=== PATIENT | female | born 1990 | race Caucasian/White ===

== ENCOUNTER 2020-01-09 09:46 | Outpatient (CLI) | payer BC, SELFPAY ==
[2020-01-09 10:24] LABS: Basophils # 0.1 10^3/uL (0.0-0.1); Basophils % 0.5 %; Eosinophils # 0.3 10^3/uL (0.0-0.8); Eosinophils % 3.2 %; Hematocrit 47.1 % (37.0-47.0); Hemoglobin 15.2 g/dL (11.5-15.3); Lymphocytes # 2.2 10^3/uL (0.8-4.8); Mean Corpuscular HGB Conc 32.3 g/dL (30.0-36.0); Mean Corpuscular Hemoglobin 29.1 pg (28.0-34.0); Mean Corpuscular Volume 90.1 fL (81-99); Mean Platelet Volume 10.4 fL (7.4-10.4); Monocytes # 0.6 10^3/uL (0.2-0.9); Monocytes % 6.6 %; Neutrophils # 6.35 10^3/uL (1.8-7.7); Neutrophils % 66.4 %; Nucleated Red Blood Cells % 0 %; Platelet Count 346 10^3/cmm (130-400); Red Blood Count 5.23 10^6/uL (4.1-5.3); Red Cell Distribution Width 12.3 % (12.1-15.1); White Blood Count 9.6 10^3/uL (4.0-10.0)
[2020-01-09 11:01] LABS: Alanine Aminotransferase 53 U/L (0-33); Albumin Level 4.6 g/dL (3.5-5.2); Alkaline Phosphatase 75 IU/L (35-105); Anion Gap 14.6 (5-19); Aspartate Amino Transferase 43 U/L (0-32); Blood Urea Nitrogen 9 mg/dL (6-20); Calcium 9.7 mg/dL (8.5-10.5); Carbon Dioxide 26 mmol/L (22-29); Chloride 103 mmol/L (98-107); Globulin 3.2 g/dL (1.3-4.6); Glucose 109 mg/dL (65-115); Lipase 16 U/L (13-60); Osmolality Calculated 287 mOsm/kg (285-295); Potassium 4.6 mmol/L (3.5-5.1); Sodium 139 mmol/L (136-145); Total Bilirubin 0.4 mg/dL (0.15-1.2); Total Protein 7.8 g/dL (6.6-8.7)
== END 2020-01-09 09:47 | disposition home or self-care (01) ==
LOC: LAB 09:48
PROVIDERS: PCP Nurse Practitioner Family; Visit Provider Nurse Practitioner Family
DX: R10.11 Right upper quadrant pain (principal); R74.8 Abnormal levels of other serum enzymes
CPT/HCPCS: 36415; 80053; 83690; 85025

== ENCOUNTER → 2020-08-13 09:13 | Outpatient (BNVA) | payer BC, SELFPAY | PROVIDERS: PCP Nurse Practitioner Family; Visit Provider Obstetrics & Gynecology | DX: N76.2 Acute vulvitis (principal) | CPT/HCPCS: 87210 ==

== ENCOUNTER → 2020-09-23 16:22 | Outpatient (BNVA) | payer BC, SELFPAY | PROVIDERS: PCP Nurse Practitioner Family; Visit Provider Nurse Practitioner Women's Health | DX: N76.2 Acute vulvitis (principal) | CPT/HCPCS: 88305 ==

== ENCOUNTER 2020-10-02 13:23 | Outpatient (CLI) | payer BC, SELFPAY ==
--- NOTE | 2020-10-02 13:30 | XR_ITS ---
WS: [id number] CERVICAL SPINE TECHNIQUE: 3 views of the cervical spine CLINICAL INFORMATION: N62 - Hypertrophy of breast COMPARISON: None. FINDINGS: Straightening of the normal cervical lordosis. Slight anterolisthesis C4 on C5. Normal C1-C2 articula tion. Normal prevertebral soft tissues. Lung apices are well aerated. Normal dens. XR/XR cervical spine 3V* [id number] IMPRESSION: 1. Straightening of the normal cervical lordosis. 2. Minimal anterolisthesis C4 on C5. 3. No other significant findings.
--- NOTE | 2020-10-02 13:30 | XR_ITS ---
WS: [id number] THORACIC SPINE TECHNIQUE: 3 views of the thoracic spine CLINICAL INFORMATION: N62 - Hypertrophy of breast COMPARISON: None. FINDINGS: Normal thoracic alignment. No acute appearing compression fractures. Vertebral body heights and disc space heights well-preserved. Cholecystectomy clips. XR/XR thoracic spine 3V* [id number] IMPRESSION: No acute thoracic spine findings.
== END 2020-10-02 13:24 | disposition home or self-care (01) ==
LOC: RADWPI 13:26
PROVIDERS: PCP Nurse Practitioner Family; Visit Provider Nurse Practitioner Women's Health
DX: N62 Hypertrophy of breast (principal)
CPT/HCPCS: 72040; 72072

== ENCOUNTER → 2021-07-02 15:15 | Outpatient (BNVA) | payer BC, SELFPAY | PROVIDERS: PCP Nurse Practitioner Family; Visit Provider Nurse Practitioner Women's Health | DX: N76.2 Acute vulvitis (principal) | CPT/HCPCS: 88305 ==

== ENCOUNTER 2021-12-01 11:00 | Outpatient (CLI) | payer BC, SELFPAY ==
[2021-12-01 11:30] VITALS: BMI 38.7
[2021-12-01 11:33] VITALS: BP 111/61; PULSE 95; RESP 17; TEMP 36.4
[2021-12-01 11:49] VITALS: BP 126/78; PULSE 97
[2021-12-01 11:55] VITALS: BP 126/78; PULSE 97
== END 2021-12-01 11:55 | disposition home or self-care (01) ==
LOC: OPOB 11:06 → OBGYN 11:29
PROVIDERS: PCP Nurse Practitioner Family; Visit Provider Family Medicine
DX: O26.892 Other specified pregnancy related conditions, second trimester (principal); O21.2 Late vomiting of pregnancy; Z3A.25 25 weeks gestation of pregnancy; R10.9 Unspecified abdominal pain
CPT/HCPCS: 59025; 99211

== ENCOUNTER 2021-12-01 12:01 | Emergency (ER) | payer BC, SELFPAY ==
[2021-12-01 12:20] VITALS: BP 124/82; PULSE 95; RESP 18; TEMP 36.8; O2SAT 97
[2021-12-01 14:55] LABS: Basophils % 0.2 %; Eosinophils % 0.2 %; Hematocrit 42.4 % (37.0-47.0); Hemoglobin 13.7 g/dL (11.5-15.3); Lymphocytes # 1.8 10^3/uL (0.8-4.8); Lymphocytes % 9.5 %; Mean Corpuscular HGB Conc 32.3 g/dL (30.0-36.0); Mean Corpuscular Hemoglobin 29.5 pg (28.0-34.0); Mean Corpuscular Volume 91.2 fl (81-99); Mean Platelet Volume 10.5 fL (7.4-10.4); Monocytes % 5.1 %; Neutrophils # 16.34 10^3/uL (1.8-7.7); Neutrophils % 84.3 %; Nucleated Red Blood Cells % 0 %; Platelet Count 279 10^3/cmm (130-400); Red Blood Count 4.65 10^6/uL (4.1-5.3); Red Cell Distribution Width 13.1 % (12.1-15.1); White Blood Count 19.4 10^3/uL (4.0-10.0)
[2021-12-01 15:23] LABS: Alanine Aminotransferase 16 U/L (0-33); Albumin Level 3.7 g/dL (3.5-5.2); Alkaline Phosphatase 74 U/L (35-105); Anion Gap 18.3 (5-19); Aspartate Amino Transferase 19 U/L (0-32); Blood Urea Nitrogen 12 mg/dL (6-20); Calcium 9.3 mg/dL (8.5-10.5); Carbon Dioxide 19 mmol/L (22-29); Chloride 101 mmol/L (98-107); Globulin 3.3 g/dL (1.3-4.6); Glomerular Filtration Rate 84.2 mL/min (90-130); Glucose 75 mg/dL (65-115); Lipase 16 U/L (13-60); Osmolality Calculated 276 mOsm/kg (285-295); Potassium 4.3 mmol/L (3.5-5.1); Sodium 134 mmol/L (136-145); Total Bilirubin 0.4 mg/dL (0.15-1.2)
== END 2021-12-01 16:28 | disposition left against medical advice (07) ==
PROVIDERS: Physician Assistant; Emergency Provider Family Medicine; PCP Nurse Practitioner Family
DX: Z53.21 Procedure and treatment not carried out due to patient leaving prior to being seen by health care provider (principal); R10.9 Unspecified abdominal pain
CPT/HCPCS: 80053; 83690; 85025

== ENCOUNTER 2021-12-03 15:13 | Emergency (ER) | payer BC, SELFPAY ==
[2021-12-03 15:40] VITALS: BP 142/82; PULSE 75; RESP 16; TEMP 36.7; O2SAT 98; BMI 38.4
--- NOTE | 2021-12-03 17:45 | ED_ITS ---
Documented by User: Chicho Morales DO 12/18/21 06:13 HPI - Abdominal Pain General: Chief Complaint: Abdominal Pain Stated Complaint: Needs CT Time Seen by Provider: 12/03/21 17:43 Source: patient Mode of arrival: ambulatory History of Present Illness: 31-year-old female at 25 weeks gestation presents emergency room complaining of left-sided flank pain she has had for the last 4 days. She also has a history of nephrolithiasis states this feels like a kidney stone she has not noticed any hematuria. She denies any dysuria urgency or frequency she has had quite a bit of nausea and vomiting states she cannot keep anything down. She has recently switch her care to Dr. Reynolds locally. She denies any fever sweats chills she has not has had some loose stools. No vaginal spotting or bleeding no dysuria urgency or frequency no noted hematuria. She reports was seen in OB and monitoring was normal. She has not had any sensation of contractions. No vaginal fluid leak no increased leukorrhea. No vaginal discharge. MD elicited complaint: abdominal pain Pertinent past history: kidney stones Onset (ago): day(s) (4) Location: L flank Severity: severe Quality: stabbing and sharp Radiation: suprapubic Exacerbating factors: nothing Relieving factors: nothing Associated Symptoms: Denies anorexia, belching, bloating, change in bowel habits, change in stool character, chills, coffee ground emesis, constipation, GI cramping, diarrhea, dyspepsia, dysuria, excessive flatus, fever(s), heartburn, hematochezia, hematuria, hematemesis, fecal incontinence, loose stools, melena, nausea, poor appetite, syncope and vomiting Related Data: Date of Last Menstrual Period: 05/31/21 Review of Systems Const: Denies: fever(s), chills, fatigue or malaise ENMT: Denies: throat pain, ear or mastoid pain, nasal discharge or nasal congestion Card: Denies: syncope Resp: Denies: dyspnea, productive cough or non-productive cough GI: Denies: nausea, vomiting, hematemesis, coffee ground emesis, heartburn, diarrhea, constipation, bloating, GI cramping, belching, excessive flatus, fecal incontinence, change in bowel habits, change in stool character, hematochezia or melena : Denies: dysuria or hematuria Skin/Breast: Denies: rash or pruritus PFSH ED PFSH: Medical History History of urinary urgency Kidney stone Psychiatric care Surgical History Hx laparoscopic cholecystectomy (05/02/18) Hx of tonsillectomy (~2000) S/P left knee arthroscopy (~2007) Family History Family/Other Colon cancer MATERNAL UNCLE--dx age 50's Father Glaucoma Grandmother Glaucoma PATERNAL Breast cancer MATERNAL-- dx age 50's Hypercholesteremia MATERNAL Denies family history of Ovarian cancer Diabetes Hypertension Uterine cancer Thyroid disease Stroke Female Reproductive History: Date of last menstrual period: 05/31/21 Physical Exam Const: GENERAL APPEARANCE: cooperative and comfortable ORIENTATION/CONSCIOUSNESS: Yes awake, Yes oriented to person, Yes oriented to place and Yes oriented to time HENMT: COMMON NORMALS: normocephalic, atraumatic and hearing grossly normal bilaterally HEAD & SCALP: normocephalic and atraumatic Resp: COMMON NORMALS: normal respiratory effort, No retractions, No use of accessory muscles and clear to auscultation bilaterally AUSCULTATION: clear to auscultation bilaterally Cardio: COMMON NORMALS: regular rate, regular rhythm and No murmurs present (Cardio) RATE: regular rate RHYTHM: regular rhythm GI: COMMON NORMALS: Soft to palpation and No hepatosplenomegaly present AUSCULTATION: Yes normoactive bowel sounds PALPATION: Yes Soft to palpation, No Tenderness to palpation present (GI), No Guarding due to palpation present (GI) and Yes No hepatosplenomegaly present Extremity: COMMON NORMALS: normal to inspection, capillary refill normal, no clubbing, cyanosis or edema, no calf tenderness and no pedal edema Neuro: SENSORIUM/ORIENTATION: Yes oriented to person, Yes oriented to place and Yes oriented to time Skin: COMMON NORMALS: no rashes or lesions noted GENERAL SKIN EXAM: no rashes or lesions noted Course Vital Signs: Vital signs: Vital Signs Temperature 98.1 F 12/03/21 20:57 Pulse Rate 84 12/03/21 20:57 Respiratory Rate 18 12/03/21 20:57 Blood Pressure 124/86 12/03/21 20:57 Pulse Oximetry 97 12/03/21 20:57 Oxygen Delivery Me thod 12/03/21 18:08 MDM - Abdominal Pain Medical Decision Making Care signed out to Dr. Way at change of shift. See final notes for diagnosis and disposition. 31-year-old female checked out to me by the previous physician at shift change. She is 25 weeks . She had left-sided flank pain that is improved significantly after fluid and pain medication. White blood cell count is 13.6 with 77% neutrophils. Her bicarbonate is 20. She has 3+ ketones in her urine. She also has blood in her urine with 1+ leukocyte esterase and 5-10 whites. She is treated with 2 L bolus of fluid, 1 g of Rocephin, and will be placed on antibiotics. Her ultrasound shows no hydronephrosis of the left kidney but she does have stones in the kidney itself, indicating likely a nonobstructing or passed kidney stone given her hematuria and significant improvement in symptoms. She will be allowed discharge with antibiotics, pain and nausea medication for symptoms. She knows to return should her pain return, or should she get a fever, as she is and high risk for problems Medical Records I reviewed the patient's medical records. Lab Data I reviewed the patient's lab results. : 12/03/21 18:09 12/03/21 18:09 Labs/Radiology: Radiology Impressions Renal Ultrasound 12/03/21 17:57 IMPRESSION: 1. Multiple hyperechoic foci in the left kidney suggesting nonobstructing stones. 2. There is a single intrauterine gestation, evaluation of the fetus was not performed during the study. 3. Stable moderate fatty infiltration of the visualized liver. Laboratory Results WBC 13.6 10^3/uL (4.0-10.0) H 12/03/21 18:09 RBC 4.73 10^6/uL (4.1-5.3) 12/03/21 18:09 Hgb 13.9 g/dL (11.5-15.3) 12/03/21 18:09 Hct 41.7 % (37.0-47.0) 12/03/21 18:09 MCV 88.2 fl (81-99) 12/03/21 18:09 MCH 29.4 pg (28.0-34.0) 12/03/21 18:09 MCHC 33.3 g/dL (30.0-36.0) 12/03/21 18:09 RDW 12.9 % (12.1-15.1) 12/03/21 18:09 Plt Count 318 10^3/cmm (130-400) 12/03/21 18:09 MPV 10.8 fL (7.4-10.4) H 12/03/21 18:09 Neut % (Auto) 77.4 % 12/03/21 18:09 Lymph % (Auto) 15.9 % 12/03/21 18:09 Posey % (Auto) 5.4 % 12/03/21 18:09 Eos % (Auto) 0.6 % 12/03/21 18:09 Baso % (Auto) 0.2 % 12/03/21 18:09 Neut # (Auto) 10.50 10^3/uL (1.8-7.7) H 12/03/21 18:09 Lymph # (Auto) 2.2 10^3/uL (0.8-4.8) 12/03/21 18:09 Posey # (Auto) 0.7 10^3/uL (0.2-0.9) 12/03/21 18:09 Eos # (Auto) 0.1 10^3/uL (0.0-0.8) 12/03/21 18:09 Baso # (Auto) 0.0 10^3/uL (0.0-0.1) 12/03/21 18:09 Nucleated RBC % (auto) 0 % 12/03/21 18:09 Nucleated RBCs # 0.0 /100WBC 12/03/21 18:09 Sodium 134 mmol/L (136-145) L 12/03/21 18:09 Potassium 3.6 mmol/L (3.5-5.1) 12/03/21 18:09 Chloride 101 mmol/L (98-107) 12/03/21 18:09 Carbon Dioxide 20 mmol/L (22-29) L 12/03/21 18:09 Anion Gap 16.6 (5-19) 12/03/21 18:09 BUN 12 mg/dL (6-20) 12/03/21 18:09 Creatinine 0.4 mg/dL (0.5-0.9) L 12/03/21 18:09 GFR Calculation 187.4 mL/min (90-130) H 12/03/21 18:09 Glucose 82 mg/dL (65-115) 12/03/21 18:09 Calculated Osmolality 277 mOsm/kg (285-295) L 12/03/21 18:09 Calcium 9.0 mg/dL (8.5-10.5) 12/03/21 18:09 Total Bilirubin 0.4 mg/dL (0.15-1.2) 12/03/21 18:09 AST 21 U/L (0-32) 12/03/21 18:09 ALT 16 U/L (0-33) 12/03/21 18:09 Alkaline Phosphatase 80 U/L (35-105) 12/03/21 18:09 Total Protein 7.5 g/dL (6.6-8.7) 12/03/21 18:09 Albumin 3.7 g/dL (3.5-5.2) 12/03/21 18:09 Globulin 3.8 g/dL (1.3-4.6) 12/03/21 18:09 Urine Color Cancelled 12/03/21 Unknown Urine Appearance Cancelled 12/03/21 Unknown Urine pH Cancelled 12/03/21 Unknown Ur Specific [place] Cancelled 12/03/21 Unknown Urine Protein Cancelled 12/03/21 Unknown Urine Glucose (UA) Cancelled 12/03/21 Unknown Urine Ketones Cancelled 12/03/21 Unknown Urine Blood Cancelled 12/03/21 Unknown Urine Nitrate Cancelled 12/03/21 Unknown Urine Bilirubin Cancelled 12/03/21 Unknown Prot Sulfosalicylic Acd Cancelled 12/03/21 Unknown Urine Urobilinogen Cancelled 12/03/21 Unknown Ur Leukocyte Esterase Cancelled 12/03/21 Unknown Urine RBC 10-15 /hpf (0-2) H 12/03/21 19:09 Urine WBC 5-10 /hpf (0-5) H 12/03/21 19:09 Ur Squamous Epith Cells 0-4 /hpf (0-5) H 12/03/21 19:09 Amorphous Sediment Not Reportable 12/03/21 19:09 Urine Bacteria Trace /hpf (NONE) 12/03/21 19:09 Urine Mucus 2+ /hpf 12/03/21 19:09 Discharge Plan Discharge Patient Disposition: Home Clinical Impression: Urinary tract infection, Hematuria Condition: Stable Prescriptions: New cefdinir 300 mg capsule 300 mg PO BID Qty: 14 0RF Percocet 7.5-325 mg tablet 1 tab PO Q6H PRN (Reason: pain) Qty: 7 0RF ondansetron 4 mg film 4 mg PO DAILY PRN (Reason: nausea and vomiting) Qty: 10 0RF No Action hydroxyzine HCl 25 mg tablet 25 mg PO BID PRN sertraline 50 mg tablet 50 mg PO DAILY silver nitrate applicators 75-25 % stick 1 applic topical ONCE Qty: 1000 0RF Discharge Orders: Discharge ED (Routine); Ordered 12/03/21 Ordered By: David Way Referrals: Bisi Wilcox, MILL HAND [Primary Care Provider] - 1-3 days Patient Instructions: Flank Pain (ED), Urinary Tract Infection in (ED), Opioid Safety Activity Restrictions/Additional Instructions: Return for return of or worsening pain, vomiting liquids or medications, fever greater than 100, decreased movement felt of your baby, any other concerning symptoms. You should follow-up with your doctor next week, as your urine should be retested. Coding Level of Care Code ED Physician Practice Coordinator for Chg Fwd Documented by User: David Way DO 12/04/21 15:53 HPI - Abdominal Pain General: Chief Complaint: Abdominal Pain Stated Complaint: Needs CT Time Seen by Provider: 12/03/21 17:43 PFSH ED 2 PFSH: Medical History History of urinary urgency Kidney stone Psychiatric care Surgical History Hx laparoscopic cholecystectomy (05/02/18) Hx of tonsillectomy (~2000) S/P left knee arthroscopy (~2007) Family History Family/Other Colon cancer MATERNAL UNCLE--dx age 50's Father Glaucoma Grandmother Glaucoma PATERNAL Breast cancer MATERNAL-- dx age 50's Hypercholesteremia MATERNAL Denies family history of Ovarian cancer Diabetes Hypertension Uterine cancer Thyroid disease Stroke Course Vital Signs: Vital signs: Vital Signs Temperature 98.1 F 12/03/21 20:57 Pulse Rate 84 12/03/21 20:57 Respiratory Rate 18 12/03/21 20:57 Blood Pressure 124/86 12/03/21 20:57 Pulse Oximetry 97 12/03/21 20:57 Oxygen Delivery Me thod 12/03/21 18:08 MDM - Abdominal Pain Medical Decision Making 31-year-old female checked out to me by the previous physician at shift change. She is 25 weeks . She had left-sided flank pain that is improved significantly after fluid and pain medication. White blood cell count is 13.6 with 77% neutrophils. Her bicarbonate is 20. She has 3+ ketones in her urine. She also has blood in her urine with 1+ leukocyte esterase and 5-10 whites. She is treated with 2 L bolus of fluid, 1 g of Rocephin, and will be placed on antibiotics. Her ultrasound shows no hydronephrosis of the left kidney but she does have stones in the kidney itself, indicating likely a nonobstructing or passed kidney stone given her hematuria and significant improvement in symptoms. She will be allowed discharge with antibiotics, pain and nausea medication for symptoms. She knows to return should her pain return, or should she get a fever, as she is and high risk for problems Lab Data : 12/03/21 18:09 12/03/21 18:09 Labs/Radiology: Radiology Impressions Renal Ultrasound 12/03/21 17:57 IMPRESSION: 1. Multiple hyperechoic foci in the left kidney suggesting nonobstructing stones. 2. There is a single intrauterine gestation, evaluation of the fetus was not performed during the study. 3. Stable moderate fatty infiltration of the visualized liver. Laboratory Results WBC 13.6 10^3/uL (4.0-10.0) H 12/03/21 18:09 RBC 4.73 10^6/uL (4.1-5.3) 12/03/21 18:09 Hgb 13.9 g/dL (11.5-15.3) 12/03/21 18:09 Hct 41.7 % (37.0-47.0) 12/03/21 18:09 MCV 88.2 fl (81-99) 12/03/21 18:09 MCH 29.4 pg (28.0-34.0) 12/03/21 18:09 MCHC 33.3 g/dL (30.0-36.0) 12/03/21 18:09 RDW 12.9 % (12.1-15.1) 12/03/21 18:09 Plt Count 318 10^3/cmm (130-400) 12/03/21 18:09 MPV 10.8 fL (7.4-10.4) H 12/03/21 18:09 Neut % (Auto) 77.4 % 12/03/21 18:09 Lymph % (Auto) 15.9 % 12/03/21 18:09 Posey % (Auto) 5.4 % 12/03/21 18:09 Eos % (Auto) 0.6 % 12/03/21 18:09 Baso % (Auto) 0.2 % 12/03/21 18:09 Neut # (Auto) 10.50 10^3/uL (1.8-7.7) H 12/03/21 18:09 Lymph # (Auto) 2.2 10^3/uL (0.8-4.8) 12/03/21 18:09 Posey # (Auto) 0.7 10^3/uL (0.2-0.9) 12/03/21 18:09 Eos # (Auto) 0.1 10^3/uL (0.0-0.8) 12/03/21 18:09 Baso # (Auto) 0.0 10^3/uL (0.0-0.1) 12/03/21 18:09 Nucleated RBC % (auto) 0 % 12/03/21 18:09 Nucleated RBCs # 0.0 /100WBC 12/03/21 18:09 Sodium 134 mmol/L (136-145) L 12/03/21 18:09 Potassium 3.6 mmol/L (3.5-5.1) 12/03/21 18:09 Chloride 101 mmol/L (98-107) 12/03/21 18:09 Carbon Dioxide 20 mmol/L (22-29) L 12/03/21 18:09 Anion Gap 16.6 (5-19) 12/03/21 18:09 BUN 12 mg/dL (6-20) 12/03/21 18:09 Creatinine 0.4 mg/dL (0.5-0.9) L 12/03/21 18:09 GFR Calculation 187.4 mL/min (90-130) H 12/03/21 18:09 Glucose 82 mg/dL (65-115) 12/03/21 18:09 Calculated Osmolality 277 mOsm/kg (285-295) L 12/03/21 18:09 Calcium 9.0 mg/dL (8.5-10.5) 12/03/21 18:09 Total Bilirubin 0.4 mg/dL (0.15-1.2) 12/03/21 18:09 AST 21 U/L (0-32) 12/03/21 18:09 ALT 16 U/L (0-33) 12/03/21 18:09 Alkaline Phosphatase 80 U/L (35-105) 12/03/21 18:09 Total Protein 7.5 g/dL (6.6-8.7) 12/03/21 18:09 Albumin 3.7 g/dL (3.5-5.2) 12/03/21 18:09 Globulin 3.8 g/dL (1.3-4.6) 12/03/21 18:09 Urine Color Cancelled 12/03/21 Unknown Urine Appearance Cancelled 12/03/21 Unknown Urine pH Cancelled 12/03/21 Unknown Ur Specific [place] Cancelled 12/03/21 Unknown Urine Protein Cancelled 12/03/21 Unknown Urine Glucose (UA) Cancelled 12/03/21 Unknown Urine Ketones Cancelled 12/03/21 Unknown Urine Blood Cancelled 12/03/21 Unknown Urine Nitrate Cancelled 12/03/21 Unknown Urine Bilirubin Cancelled 12/03/21 Unknown Prot Sulfosalicylic Acd Cancelled 12/03/21 Unknown Urine Urobilinogen Cancelled 12/03/21 Unknown Ur Leukocyte Esterase Cancelled 12/03/21 Unknown Urine RBC 10-15 /hpf (0-2) H 12/03/21 19:09 Urine WBC 5-10 /hpf (0-5) H 12/03/21 19:09 Ur Squamous Epith Cells 0-4 /hpf (0-5) H 12/03/21 19:09 Amorphous Sediment Not Reportable 12/03/21 19:09 Urine Bacteria Trace /hpf (NONE) 12/03/21 19:09 Urine Mucus 2+ /hpf 12/03/21 19:09 Discharge Plan Discharge Patient Disposition: Home Clinical Impression: Urinary tract infection, Hematuria Condition: Stable Prescriptions: New cefdinir 300 mg capsule 300 mg PO BID Qty: 14 0RF Percocet 7.5-325 mg tablet 1 tab PO Q6H PRN (Reason: pain) Qty: 7 0RF ondansetron 4 mg film 4 mg PO DAILY PRN (Reason: nausea and vomiting) Qty: 10 0RF No Action hydroxyzine HCl 25 mg tablet 25 mg PO BID PRN sertraline 50 mg tablet 50 mg PO DAILY silver nitrate applicators 75-25 % stick 1 applic topical ONCE Qty: 1000 0RF Discharge Orders: Discharge ED (Routine); Ordered 12/03/21 Ordered By: David Way Referrals: Bisi Wilcox, MILL HAND [Primary Care Provider] - 1-3 days Patient Instructions: Flank Pain (ED), Urinary Tract Infection in ( ED), Opioid Safety Activity Restrictions/Additional Instructions: Return for return of or worsening pain, vomiting liquids or medications, fever greater than 100, decreased movement felt of your baby, any other concerning symptoms. You should follow-up with your doctor next week, as your urine should be retested. Coding Level of Care Code ED Physician Practice Coordinator for Kendy Hollis
--- NOTE | 2021-12-03 17:57 | USR_ITS ---
NOTE: Report was unsigned for reason: Order was edited. Original Signature date and time was: 12/03/211918 PROCEDURE INFORMATION: Exam: US Retroperitoneal; Complete; Kidneys and Bladder Exam date and time: 12/03/2021 6:28 PM Age: 31 years old Clinical indication: Abdominal pain; ; Additional info: L renal colic - nephrolithiasis TECHNIQUE: Imaging protocol: Real-time ultrasound of the retroperitoneum with image documentation. Complete exam focused on the kidneys and bladder. COMPARISON: [place] [facility] [place] 10/22/2015 1:55 PM FINDINGS: Liver: Moderately increased echotexture in the visualized liver. Findings are stable and consistent with moderate fatty infiltration. Right kidney: The right kidney is unremarkable. The right kidney measures 10.6 cm in length. Cortical thickness and echotexture are unremarkable. No hydronephrosis or nephrolithiasis. No cystic or solid renal masses. Left kidney: The left kidney measures 12.8 cm in length. Cortical echotexture and thickness are unremarkable. No hydronephrosis. No cystic or solid renal masses. Multiple hyperechoic foci in the left kidney suggesting nonobstructing stones. Inferior vena cava: There is a single intrauterine gestation, evaluation of the fetus was not performed during the study. Urinary bladder: The bladder is incompletely filled, which can limit evaluation. No focal abnormality in the bladder however. [facility] US/US renal BI with PV bladder IMPRESSION: 1. Multiple hyperechoic foci in the left kidney suggesting nonobstructing stones. 2. There is a single intrauterine gestation, evaluation of the fetus was not performed during the study. 3. Stable moderate fatty infiltration of the visualized liver.
[2021-12-03] MEDS: promethazine 25 mg/mL SDV 1 mL IM (18:06)
[2021-12-03 18:08] VITALS: BP 142/84; PULSE 96; RESP 18; O2SAT 98
[2021-12-03 18:17] VITALS: RESP 18
[2021-12-03] MEDS: morphine 4 mg/mL SDV 1 mL IVP (18:17)
[2021-12-03] MEDS: sodium chloride 0.9% 1,000 ML 999 ML IV ×3 (18:19→19:11)
[2021-12-03 18:50] LABS: Basophils % 0.2 %; Eosinophils # 0.1 10^3/uL (0.0-0.8); Eosinophils % 0.6 %; Hematocrit 41.7 % (37.0-47.0); Hemoglobin 13.9 g/dL (11.5-15.3); Lymphocytes # 2.2 10^3/uL (0.8-4.8); Lymphocytes % 15.9 %; Mean Corpuscular HGB Conc 33.3 g/dL (30.0-36.0); Mean Corpuscular Hemoglobin 29.4 pg (28.0-34.0); Mean Corpuscular Volume 88.2 fl (81-99); Mean Platelet Volume 10.8 fL (7.4-10.4); Monocytes # 0.7 10^3/uL (0.2-0.9); Monocytes % 5.4 %; Neutrophils % 77.4 %; Nucleated Red Blood Cells % 0 %; Platelet Count 318 10^3/cmm (130-400); Red Blood Count 4.73 10^6/uL (4.1-5.3); Red Cell Distribution Width 12.9 % (12.1-15.1); White Blood Count 13.6 10^3/uL (4.0-10.0)
[2021-12-03 19:08] LABS: Alanine Aminotransferase 16 U/L (0-33); Albumin Level 3.7 g/dL (3.5-5.2); Alkaline Phosphatase 80 U/L (35-105); Anion Gap 16.6 (5-19); Aspartate Amino Transferase 21 U/L (0-32); Blood Urea Nitrogen 12 mg/dL (6-20); Carbon Dioxide 20 mmol/L (22-29); Chloride 101 mmol/L (98-107); Globulin 3.8 g/dL (1.3-4.6); Glomerular Filtration Rate 187.4 mL/min (90-130); Glucose 82 mg/dL (65-115); Osmolality Calculated 277 mOsm/kg (285-295); Potassium 3.6 mmol/L (3.5-5.1); Sodium 134 mmol/L (136-145); Total Bilirubin 0.4 mg/dL (0.15-1.2); Total Protein 7.5 g/dL (6.6-8.7)
--- NOTE | 2021-12-03 19:12 | PC.NURSE ---
report given to meli cui assumed care.
[2021-12-03 20:08] LABS: Urine Appearance Clear (CLEAR); Urine Color Yellow (Yellow); pH Urine 5 (5-7)
[2021-12-03 20:09] LABS: Add Urine Microscopic? YES; Bilirubin Urine Neg (Negative); Blood Urine 2+ (Negative); Glucose Urine UA Norm (Normal); Ketones Urine 3+ (Negative); Leukocyte Esterase Urine 1+ (Negative); Nitrate Urine Negative (Negative); Protein Urine Trace (Negative); Squamous Epithelial Cell Urine 0-4 /hpf (0-5); Urobilinogen Urine Neg (Negative)
[2021-12-03 20:10] LABS: Add Urine Culture? Yes; Bacteria Urine TRACE /hpf; Mucus Urine 2+ /hpf
[2021-12-03] MEDS: cefTRIAXone 1,000 MG in sodium chloride 0.9% (plus) 50 ML 100 MG IV (20:33)
[2021-12-03 20:57] VITALS: BP 124/86; PULSE 84; RESP 18; TEMP 36.7; O2SAT 97
== END 2021-12-03 21:00 | disposition home or self-care (01) ==
PROVIDERS: Family Medicine; Emergency Provider Emergency Medicine; PCP Nurse Practitioner Family
DX: N39.0 Urinary tract infection, site not specified (principal); R31.9 Hematuria, unspecified
CPT/HCPCS: 76770; 76857; 80053; 81001; 85025; 87086; 96361; 96365; 96372; 96375; 99284; J0696; J2270; J2550; J7030

== ENCOUNTER 2022-03-02 18:35 | Inpatient (IN) | payer BC, SELFPAY ==
[2022-03-02] VITALS (10 sets, daily range): BP systolic 120–138; BP diastolic 58–75; PULSE 77–93; BMI 39.8
--- NOTE | 2022-03-02 20:26 | PM.OBGYHP ---
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 Patient had significantly elevated blood pressure readings at her last office visit with systolic blood pressures in the 140s to 150s and diastolic greater than 90. Patient had no other complications during . The patient did test positive for GBS. Initial work-up was unremarkable and was done by Dr. Huizar at [facility]. Present Details : 3 Para: 2 Date of Last Menstrual Period: 05/31/21 Calculated Date of Delivery: 03/07/22 Gestational Age Based on Last Menstrual Period: 39 Dating criteria OB: LMP confirmed by 1st trimester US care: good care Obstetrical complications: gestational hypertension Medical complications OB: psychiatric Labs Rubella: Immune RPR: Negative GBS: Positive Review of Systems General: Reports: 10 or more systems reviewed and unremarkable except in HPI and below Medications/Allergies Home Medications Medication Instructions Recorded Confirmed Last Taken Type hydroxyzine HCl 25 mg tablet 25 mg PO BID PRN 06/07/21 07/02/21 Unknown History sertraline 50 mg tablet 50 mg PO DAILY 06/07/21 07/02/21 Unknown History cefdinir 300 mg capsule 300 mg PO BID #14 caps 12/03/21 Unknown Rx ondansetron 4 mg oral soluble film 4 mg PO DAILY PRN nausea and 12/03/21 Unknown Rx vomiting #10 ea oxycodone-acetaminophen 7.5 mg-325 1 tab PO Q6H PRN pain #7 tabs 12/03/21 Unknown Rx mg tablet (Percocet) Allergies Allergy/AdvReac Type Severity Reaction Status Date / Time amoxicillin Allergy UNKNOWN Verified 07/02/21 14:29 ciprofloxacin [From Cipro] Allergy RASH Verified 07/02/21 14:29 hydrocortisone Allergy DERMATITIS Verified 07/02/21 14:29 nitrofurantoin Allergy RASH Verified 07/02/21 14:29 [From Macrobid] prednisone Allergy RASH Verified 07/02/21 14:29 Sulfa (Sulfonamide Allergy RASH Verified 07/02/21 14:29 Antibiotics) PFSH SALES AND DISTRIBUTION CLERK PFSH: Medical History History of urinary urgency Kidney stone Psychiatric care Surgical History Hx laparoscopic cholecystectomy (05/02/18) Hx of tonsillectomy (~2000) S/P left knee arthroscopy (~2007) Family History Family/Other Colon cancer MATERNAL UNCLE--dx age 50's Father Glaucoma Grandmother Glaucoma PATERNAL Breast cancer MATERNAL-- dx age 50's Hypercholesteremia MATERNAL Denies family history of Ovarian cancer Diabetes Hypertension Uterine cancer Thyroid disease Stroke Other Female Reproductive History: Hx Age of Menarche: 14 History History History 3 Term 2 0 Miscarriages/Ectopic 0 Living Children 2 Vitals/I&O/Wt Last Vital Signs Pulse 85 03/02/22 20:19 BP 122/58 03/02/22 20:19 Physical Exam Const: COMMON NORMALS: no acute distress and alert HENMT: COMMON NORMALS: normocephalic and moist oral mucous membranes Eye: COMMON NORMALS: no scleral icterus Chest: COMMONS NORMALS: normal inspection of the chest Resp: COMMON NORMALS: normal respiratory effort and No retractions Cardio: COMMON NORMALS: no JVD, regular rate and regular rhythm Extremity: COMMON NORMALS: normal to inspection and no clubbing, cyanosis or edema Neuro: COMMON NORMALS: patient oriented x3 and moves all extremities Psych: COMMON NORMALS: mental status grossly normal and normal affect A&P Assessment and plan (1) Gestational hypertension affecting third : Patient had significant elevated blood pressures at last office visit consistent with gestational diabetes. Since he has not on medications there is indicated between 38 and 39 weeks per standard of care (2) Term : Proceed with induction of labor using Cytotec. Risk and benefits of this procedure was discussed with the patient and informed consent was obtained (3) Positive GBS test: Plan to start ampicillin (4) Anxiety: Continue home meds Attestations Medical Necessity Statement*: Anticipate greater than 2 midnight Coding Level of Care Code Acute Zoogler for Chg Fwd Diagnoses Gestational hypertension affecting third O13.9 Term Z34.90 Positive GBS test B95.1 Anxiety F41.9
[2022-03-02 21:16] LABS: Urine Creatinine 43 mg/dL (28-217); Urine Protein Random 7 mg/dL
[2022-03-02 21:17] LABS: UPRO/UCREAT Ratio 0.16 mg/mg CR
[2022-03-02 21:23] LABS: Basophils % 0.2 %; Eosinophils # 0.2 10^3/uL (0.0-0.8); Eosinophils % 1.5 %; Hematocrit 35.7 % (37.0-47.0); Hemoglobin 11.7 g/dL (11.5-15.3); Lymphocytes # 2.8 10^3/uL (0.8-4.8); Lymphocytes % 20.1 %; Mean Corpuscular HGB Conc 32.8 g/dL (30.0-36.0); Mean Corpuscular Hemoglobin 28.7 pg (28.0-34.0); Mean Corpuscular Volume 87.7 fl (81-99); Mean Platelet Volume 10.7 fL (7.4-10.4); Monocytes # 0.9 10^3/uL (0.2-0.9); Monocytes % 6.5 %; Neutrophils # 9.78 10^3/uL (1.8-7.7); Neutrophils % 71.2 %; Nucleated Red Blood Cells % 0 %; Platelet Count 276 10^3/cmm (130-400); Red Blood Count 4.07 10^6/uL (4.1-5.3); Red Cell Distribution Width 13.6 % (12.1-15.1); White Blood Count 13.8 10^3/uL (4.0-10.0)
[2022-03-02] MEDS: dextrose 5%-lactated ringers 1,000 ML 125 ML IV (21:25)
[2022-03-02] MEDS: ampicillin 2,000 MG in sodium chloride 0.9% (plus) 50 ML 100 MG IV (21:26)
[2022-03-02] MEDS: miSOPROStol 100 mcg tablet 25 MCG VAGINAL (22:11)
[2022-03-03] VITALS (74 sets, daily range): BP systolic 114–185; BP diastolic 56–115; PULSE 53–142; RESP 16–18; TEMP 35.7–36.8; O2SAT 89–100
[2022-03-03] MEDS: ampicillin 1,000 MG in sodium chloride 0.9% (plus) 50 ML 100 MG IV ×2 (01:42→06:09)
[2022-03-03] MEDS: miSOPROStol 100 mcg tablet 25 MCG VAGINAL (02:33)
--- NOTE | 2022-03-03 07:34 | PM.OBGYPN ---
MATERIAL DAMAGE ADJUSTER Subjective Subjective: Interval history: This is a 31-year-old G3, P2 at 38 weeks 3 days that came in last night for induction of labor. Patient received 2 doses of Cytotec and has dilated to 4 cm and is stephanie every 3 to 5 minutes. Patient has no concerns. heart tones have been reassuring. Patient has received 3 doses of antibiotics Labor: Station: -3 Amniotic Membrane Status: Intact Monitor Mode: Palpation Contraction Pattern: Irregular Status: Category I Vitals/I&O/Wt Last Vital Signs Temp 96.3 F L 03/03/22 05:28 Pulse 77 03/03/22 07:12 BP 124/65 03/03/22 07:12 O2 Del Method 03/02/22 19:20 03/02/22 03/03/22 03/03/22 22:59 06:59 14:59 Intake Total 50 / 50 50 / 50 Balance 50 / 50 50 / 50 Weight last 48 hrs Weight 102.058 kg Physical Exam Const: COMMON NORMALS: no acute distress and alert Resp: COMMON NORMALS: normal respiratory effort and No retractions Cardio: COMMON NORMALS: regular rate and regular rhythm RATE: regular rate RHYTHM: regular rhythm Extremity: COMMON NORMALS: no clubbing, cyanosis or edema Neuro: SENSORIUM/ORIENTATION: Yes alert Psych: COMMON NORMALS: mental status grossly normal and normal affect Data 03/02/22 21:00 A&P Assessment and plan (1) Gestational hypertension affecting third : Continue induction of labor. Blood pressures have been controlled (2) Term : Continue routine labor management (3) Positive GBS test: Patient has received appropriate antibiotics. (4) Anxiety: Continue home meds Attestations Medical Necessity Statement*: Anticipate 1 more midnight. Procedures Procedure Narrative Procedure: AROM After informed consent was obtained the patient was evaluated and was shown to be 2 cm dilated. Using an amnio hook the amniotic sac was ruptured easily with small amount of clear fluid noted. Patient tolerated the procedure well and there are no complications. Coding Level of Care Code Acute Special Shopper for Chg Fwd Diagnoses Gestational hypertension affecting third O13.9 Term Z34.90 Positive GBS test B95.1 Anxiety F41.9
[2022-03-03] MEDS: lactated ringers 1,000 ML 999 ML IV ×2 (07:36→08:47)
--- NOTE | 2022-03-03 08:49 | P.ANES_ITS ---
Documented by User: Silvestre Yee, GEOPOLITICS TEACHER 03/03/22 08:51 Anesthesia Procedures Procedure/Date: 03/03/22 Epidural: Time Out Performed: Yes Consents Signed: Procedure Consent and NPO Consent Consent: requested by attending/covering physician, from patient, risks and benefits reviewed and patient agrees to proceed Lumbar Level: L3-L4 Epidural position: sitting Epidural procedure: sterile prep of area, 1% lidocaine to numb the area, neg for paresthesia, test dose given, 1.5% xylocaine 1:200k epi (3 mL/2mL), 0.2% Ropivacaine bolus ml (5mL), placed PCEA, no systemic response, sterile dressing applied and 0.2% Ropiavacaine @ mls/hr (11) Additional Comments: CLARISA 6cm, catheter placed at 11cm Documented by User: Quan Arellano 03/03/22 13:12 Anesthesia Procedures Procedure/Date: 03/03/22
[2022-03-03] MEDS: oxytocin 30 UNIT/500 ML BAG 600 UNIT IV (09:45)
--- NOTE | 2022-03-03 09:52 | PM.DELIVERY ---
Delivery Note: Date of delivery: March 03, 2022 Pre-delivery diagnoses: gestational HTN, TIUP Post-delivery diagnoses: same,viable infant male Procedure: Spontaneous vaginal delivery Delivering Physician: Dr. Chris Parry Estimated blood loss (mL): 200 Pre-Delivery Course: The presenting symptom presented to this is a 31-year-old G3, P2 that presented to an labor and delivery for induction of labor. Patient patient received 2 doses of Cytotec overnight and cervix became much more favorable. Patient had AROM this AM. Patient then dilated to completion over the next 3 hours Delivery: Patient delivered precipitously vaginally without incident. Upon my arrival placenta had not been delivered. The patient sensor was then delivered without incident. Few of the perineum after delivery did not demonstrate any significant tears. Bleeding was well controlled. Uterus was firm on palpation. There were no complications and mom was doing well. Post-Delivery Status: Stable History History History 3 Term 2 0 Miscarriages/Ectopic 0 Living Children 2 A&P Assessment and plan (1) Positive GBS test: Patient received appropriate antibiotic prior to the delivery (2) Gestational hypertension affecting third : Blood pressures have been controlled. (3) Normal vaginal delivery: No issues during delivery. Start routine care. Coding Level of Care Code Acute Research Hydrologist for Chg Fwd Diagnoses Positive GBS test B95.1 Gestational hypertension affecting third O13.9 Normal vaginal delivery O80
--- NOTE | 2022-03-03 11:10 | PC.NURSE ---
Pt up to bathroom without difficulty. Elena care performed by pt. Pad, underwear, and gown changed by pt. Pt then back to bed, resting comfortably.
--- NOTE | 2022-03-03 13:12 | ANES.PREANE2 ---
Pre-Anesthetic Assessment Height/Weight: Height 1.6 m Weight 102.058 kg Temp Pulse Resp BP Pulse Ox O2 Del Method 98.3 F 81 16 123/65 100 03/03/22 11:02 03/03/22 12:55 03/03/22 11:02 03/03/22 12:55 03/03/22 09:35 03/02/22 19:20 Familial anesthetic complications: none Was Beta Sophia taken within 24 hours: N/A Was Clonidine taken within 24 hours: N/A Social No alcohol and No tobacco Exam alert, oriented x 3, clear to auscultation bilaterally and regular rate & rhythm Airway Submandibular: within normal limits Cervical ROM: within normal limits Mallampati: Class II Dentition: full Neuropsych Anxiety Anesthetic Plan ASA status: 2 Anesthesia: Regional (specify below) (labor epidural) Medications/Allergies Home Medications Medication Instructions Recorded Confirmed Last Taken Type bakjgduo-jbn-Sy-FA 1 mg tab PO 03/02/22 03/01/22 08:00 History tablet Allergies Allergy/AdvReac Type Severity Reaction Status Date / Time amoxicillin Allergy UNKNOWN Verified 07/02/21 14:29 ciprofloxacin [From Cipro] Allergy RASH Verified 07/02/21 14:29 hydrocortisone Allergy DERMATITIS Verified 07/02/21 14:29 nitrofurantoin Allergy RASH Verified 07/02/21 14:29 [From Macrobid] prednisone Allergy RASH Verified 07/02/21 14:29 Sulfa (Sulfonamide Allergy RASH Verified 07/02/21 14:29 Antibiotics) Current Medications Generic Name Dose Route Start Last Admin Trade Name Freq PRN Reason Stop Dose Admin Oxytocin 30 unit in 500 mls @ 600 mls/hr 03/02/22 19:54 03/03/22 10:43 Pitocin IV Infused .Q50M PRN Titration After delivery of Protocol Lactated Ringer's 1,000 mls @ 999 mls/hr 03/02/22 19:54 03/03/22 10:53 Lactated Ringers IV Infused .Q1H1M PRN Infusion Per L&D Rescitation Protocol Dextrose/Lactated Ringer's 1,000 mls @ 125 mls/hr 03/02/22 20:00 03/03/22 12:35 Dextrose 5%-Lactated Ringers IV Not Given .Q8H POWER Lactated Ringer's 1,000 mls @ 999 mls/hr 12/08/22 07:16 03/03/22 09:20 Lactated Ringers IV Infused .Q1H1M PRN Infusion See label comments PFSH Anesthesia Medical History History of urinary urgency Kidney stone Psychiatric care Surgical History Hx laparoscopic cholecystectomy (05/02/18) Hx of tonsillectomy (~2000) S/P left knee arthroscopy (~2007) Family History Family/Other Colon cancer MATERNAL UNCLE--dx age 50's Father Glaucoma Grandmother Glaucoma PATERNAL Breast cancer MATERNAL-- dx age 50's Hypercholesteremia MATERNAL Denies family history of Ovarian cancer Diabetes Hypertension Uterine cancer Thyroid disease Stroke Female Reproductive History Date of last menstrual period: 05/31/21 : 3 Data Anesthesia 03/02/22 21:00 Short CBC 03/02/22 03/02/22 Range/Units 20:40 21:00 WBC Cancelled 13.8 H Hgb Cancelled 11.7 Hct Cancelled 35.7 L MCV Cancelled 87.7 Plt Count Cancelled 276 Neut % (Auto) Cancelled 71.2 Neut # (Auto) Cancelled 9.78 H Cardiac Studies: No Data to Display
--- NOTE | 2022-03-03 13:13 | ANE.PACU2 ---
Inpatient post-anesthesia follow up: Airway intact: Yes Vital signs: Temperature 98.3 F Pulse Rate 81 Respiratory Rate 16 Blood Pressure 123/65 Pulse Oximetry 100 Oxygen Delivery Me thod Room Air Oxygen Flow Rate Fraction of Inspir ed Oxygen Hydration adequate: Yes Nausea and vomiting: No Pain level: 2 Mental status: Baseline
[2022-03-03] MEDS: lanolin oint 7 gm 1 APPLIC TOPICAL (14:38)
[2022-03-03] MEDS: ibuprofen 800 mg tablet PO ×2 (14:38→21:01)
[2022-03-03] MEDS: benzocaine-menthol 78 gm Canister 1 SPRAY TOPICAL (14:39)
--- NOTE | 2022-03-03 15:23 | PC.NURSE ---
moved to OB-8. oriented to room/call light. proud parent pack and feeding log discussed.
[2022-03-03] MEDS: acetaminophen 325 mg Tablet 650 MG PO (17:31)
[2022-03-03] MEDS: docusate sodium 100 mg Capsule PO (17:32)
[2022-03-03 23:16] LABS: Hematocrit 31.2 % (37.0-47.0); Hemoglobin 10.2 g/dL (11.5-15.3); Mean Corpuscular HGB Conc 32.7 g/dL (30.0-36.0); Mean Corpuscular Hemoglobin 28.7 pg (28.0-34.0); Mean Corpuscular Volume 87.9 fl (81-99); Platelet Count 245 10^3/cmm (130-400); Red Blood Count 3.55 10^6/uL (4.1-5.3); Red Cell Distribution Width 13.6 % (12.1-15.1)
[2022-03-04 05:53] VITALS: BP 127/83; PULSE 82; TEMP 36.8; O2SAT 99
--- NOTE | 2022-03-04 07:02 | P.DS_ITS ---
Discharge Providers PETROLEUM REFINERY LABORER Date of Admission: 03/02/22 18:35 Date of Discharge: 03/05/22 Attending Provider at Admission: Chris Parry MD Attending Provider at Discharge: Chris Parry MD Primary Care Provider: Bisi Wilcox Diagnoses at Discharge Discharge Diagnosis (1) Positive GBS test: Status: Acute (2) Gestational hypertension affecting third : Status: Acute (3) Normal vaginal delivery: Status: Acute Reason for Visit Reason for Visit: induction Brief History: IOL for gestational hypertension Hospital Course Hospital Course This is a 31-year-old G3, P3 that presented for induction of labor due to gestational hypertension. Patient initially received 2 doses of Cytotec and went into labor contractions. AROM was performed and the patient progressed to complete dilation over the next 3 hours. Patient then delivered a viable male without difficulty. There were no complications during labor or delivery. Post care was unremarkable. Information Peripartum Data: Infant Delivery Method: Vaginal Laceration description: None Episiotomy description: None complications: none Physical Exam Const: COMMON NORMALS: no acute distress and patient oriented x3 Resp: COMMON NORMALS: normal respiratory effort and No retractions Cardio: COMMON NORMALS: regular rate and regular rhythm RATE: regular rate RHYTHM: regular rhythm GI: COMMON NORMALS: Normal to inspection, nondistended, normoactive bowel sounds present Extremity: COMMON NORMALS: no clubbing, cyanosis or edema Neuro: COMMON NORMALS: patient oriented x3 and moves all extremities Psych: COMMON NORMALS: mental status grossly normal and normal affect Urinary Catheter Management: Brian Latex: Cath Placed During This Visit: yes, but has since been removed by the nurse Reason for Continuing Indwelling Catheter: Decision to DC Catheter Urinary Catheter Date of Insertion: 03/03/22 Urinary Catheter Time of Insertion: 09:30 Date Urinary Catheter Removed: 03/03/22 Time Urinary Catheter Discontinued: 09:35 History History History 3 Term 2 0 Miscarriages/Ectopic 0 Living Children 2 Discharge Data Studies Completed and Pending Laboratory Results WBC 14.0 10^3/uL (4.0-10.0) H 03/03/22 22:55 Corrected WBC Cancelled 03/02/22 20:40 RBC 3.55 10^6/uL (4.1-5.3) L 03/03/22 22:55 Hgb 10.2 g/dL (11.5-15.3) L 03/03/22 22:55 Hct 31.2 % (37.0-47.0) L 03/03/22 22:55 MCV 87.9 fl (81-99) 03/03/22 22:55 MCH 28.7 pg (28.0-34.0) 03/03/22 22:55 MCHC 32.7 g/dL (30.0-36.0) 03/03/22 22:55 RDW 13.6 % (12.1-15.1) 03/03/22 22:55 Plt Count 245 10^3/cmm (130-400) 03/03/22 22:55 MPV 11.0 fL (7.4-10.4) H 03/03/22 22:55 Gran % Cancelled 03/02/22 20:40 Neut % (Auto) 71.2 % 03/02/22 21:00 Lymph % (Auto) 20.1 % 03/02/22 21:00 [place] % (Auto) 6.5 % 03/02/22 21:00 Eos % (Auto) 1.5 % 03/02/22 21:00 Baso % (Auto) 0.2 % 03/02/22 21:00 Neut # (Auto) 9.78 10^3/uL (1.8-7.7) H 03/02/22 21:00 Lymph # (Auto) 2.8 10^3/uL (0.8-4.8) 03/02/22 21:00 [place] # (Auto) 0.9 10^3/uL (0.2-0.9) 03/02/22 21:00 Eos # (Auto) 0.2 10^3/uL (0.0-0.8) 03/02/22 21:00 Baso # (Auto) 0.0 10^3/uL (0.0-0.1) 03/02/22 21:00 Absolute Gran (auto) Cancelled 03/02/22 20:40 Nucleated RBC % (auto) 0 % 03/02/22 21:00 Nucleated RBCs # 0.0 /100WBC 03/02/22 21:00 U Random Total Protein 7 mg/dL 03/02/22 20:40 Urine Creatinine 43 mg/dL (28-217) 03/02/22 20:40 Protein/Creatinin Ratio 0.16 mg/mg CR 03/02/22 20:40 Vitals Last Vital Signs Temp 98.2 F 03/04/22 05:53 Pulse 82 03/04/22 05:53 Resp 16 03/03/22 22:35 BP 127/83 03/04/22 05:53 Pulse Ox 99 03/04/22 05:53 O2 Del Method 03/04/22 05:53 Discharge Plan Discharge Patient Disposition: Home Condition: Stable Prescriptions: Continued nddqohiv-sbs-Ej-FA 1 mg Tablet PO Discharge Orders: Discharge Order (Routine); Ordered 03/04/22 Ordered By: Chris Parry Referrals: Chris Parry MD [Physician] - 04/15/22 8:15 am (* Your 6 week appointment is with Dr. Parry on 04/15/2022 at 8:15am) Patient Instructions: Depression (DC), Bleeding (DC), Preeclampsia and Eclampsia After Delivery (GEN), Vaginal Delivery (DC), OB Discharge Report, OB Food/Drug Interaction Guide, Opioid Safety, OB Home Care, OB Proud Parent Packet Discharge Attestations PETROLEUM REFINERY LABORER Time Spent in Discharge Care*: less than 30 min Coding Level of Care Code Acute Welding Engineer for Chg Fwd Exam Detailed Diagnoses Positive GBS test B95.1 Gestational hypertension affecting third O13.9 Normal vaginal delivery O80
[2022-03-04] MEDS: prenatal vitamin Capsule 1 CAP PO (09:04)
[2022-03-04] MEDS: ibuprofen 800 mg tablet PO (09:04)
[2022-03-04] MEDS: docusate sodium 100 mg Capsule PO (09:04)
[2022-03-04 11:00] VITALS: BP 131/83; PULSE 82; RESP 16; TEMP 36.4; O2SAT 97
== END 2022-03-04 12:00 | disposition home or self-care (01) | DRG 807 ==
LOC: OPOB 19:07 → OBGYN 19:08
PROVIDERS: Admitting Provider Family Medicine; PCP Nurse Practitioner Family; Visit Provider Family Medicine
DX: O13.4 Gestational [pregnancy-induced] hypertension without significant proteinuria, complicating childbirth (principal); Z37.0 Single live birth; O99.824 Streptococcus B carrier state complicating childbirth; O99.344 Other mental disorders complicating childbirth; Z3A.38 38 weeks gestation of pregnancy
CPT/HCPCS: 36415; 51702; 59025; 59409; 82570; 84156; 85025; 85027; 99211; J0290; J2590; J2795; J7120; J7121

== ENCOUNTER 2022-03-20 12:48 | Emergency (ER) | payer BC, SELFPAY ==
[2022-03-20] VITALS (7 sets, daily range): BP systolic 131–180; BP diastolic 64–95; PULSE 85–100; RESP 14–17; TEMP 37.1; O2SAT 96–99
--- NOTE | 2022-03-20 13:44 | ED_ITS ---
HPI - Abdominal Pain General: Chief Complaint: Abdominal Pain Stated Complaint: abd pain Time Seen by Provider: 03/20/22 13:44 History of Present Illness: Ms. Underwood is a 31-year-old lady approximately 2 weeks from a vaginal delivery presenting to the emergency department due to right abdominal flank pain. Onset of symptoms was yesterday without known specific event. Radiates towards the groin. Has had sweats, nausea, vomiting. Intensity symptoms is moderate to severe. Denies vaginal discharge or bleeding, no urinary symptoms, no changes of bowel movement. No similar episodes in the past no other specific changes in health, exacerbating, or alleviating factors identified. Onset (ago): day(s) Location: R flank Severity: moderate Exacerbating factors: nothing Relieving factors: nothing Context: recent surgery/procedure Associated Symptoms: Reports chills, nausea and vomiting Related Data: Date of Last Menstrual Period: 05/31/21 Review of Systems General: Reports: 10 or more systems reviewed and unremarkable except in HPI and below Const: Reports: chills GI: Reports: nausea and vomiting PFSH ED PFSH: Medical History Anxiety History of urinary urgency Kidney stone Positive GBS test Psychiatric care Term Surgical History Hx laparoscopic cholecystectomy (05/02/18) Hx of tonsillectomy (~2000) S/P left knee arthroscopy (~2007) Family History Family/Other Colon cancer MATERNAL UNCLE--dx age 50's Father Glaucoma Grandmother Glaucoma PATERNAL Breast cancer MATERNAL-- dx age 50's Hypercholesteremia MATERNAL Denies family history of Ovarian cancer Diabetes Hypertension Uterine cancer Thyroid disease Stroke Female Reproductive History: Date of last menstrual period: 05/31/21 Physical Exam Const: COMMON NORMALS: alert GENERAL APPEARANCE: cooperative and well developed HENMT: COMMON NORMALS: normocephalic and atraumatic HEAD & SCALP: normocephalic and atraumatic Eye: COMMON NORMALS: conjunctivae normal CONJUNCTIVA: Yes conjunctivae normal SCLERA: sclerae normal Neck/C-Spine: COMMON NORMALS: supple GENERAL: Yes trachea midline Resp: COMMON NORMALS: clear to auscultation bilaterally EFFORT & INSPECTION: Yes able to speak in complete sentences AUSCULTATION: clear to auscultation bilaterally Cardio: COMMON NORMALS: regular rate and regular rhythm RATE: regular rate RHYTHM: regular rhythm GI: COMMON NORMALS: Soft to palpation PALPATION: Yes Soft to palpation, Yes Tenderness to palpation present (GI), No Guarding due to palpation present (GI) and No Rigid due to palpation PERCUSSION: normal to percussion Extremity: GENERAL: Yes normal exam except as noted and No edema Neuro: COMMON NORMALS: moves all extremities SENSORIUM/ORIENTATION: Yes alert and No Orientation impaired Psych: COMMON NORMALS: mental status grossly normal and Normal thought process present THOUGHT PROCESS: Normal thought process present Course Vital Signs: Vital signs: Vital Signs Temperature 98.7 F 03/20/22 13:23 Pulse Rate 96 03/20/22 17:33 Respiratory Rate 17 03/20/22 14:44 Blood Pressure 164/76 03/20/22 17:33 Pulse Oximetry 97 03/20/22 17:33 Oxygen Delivery Me thod 03/20/22 16:31 MDM - Abdominal Pain Medical Decision Making 31-year-old female recently presenting with abdominal pain with nausea vomiting. Mildly on appearance and uncomfortable due to symptoms. Labs with leukocytosis and hemoconcentration. No significant metabolic derangement. Mild elevation in AST. Hematuria present. CT imaging notable for 3 mm proximal to mid right ureteral calculus with mild right-sided hydronephrosis and perinephric edema. Patient proved with fluids, analgesia, antiemetic. Also given antibiotics given blood cells in urine. Patient is reasonable for outpatient management as she is comfortable with this plan with close follow-up with urology and strict return precautions. Most likely cause of patient symptoms is ureterolithiasis. The results of ED evaluation were discussed with the patient including prescriptions and/or symptomatic cares (if applicable) including appropriate and responsible use, breast-feeding precautions given medications, followup plan, and return precautions. The patient verbalized understanding and felt safe for discharge. Medical Records I reviewed the patient's medical records. Lab Data I reviewed the patient's lab results. 03/20/22 14:35 03/20/22 14:35 Labs/Radiology: Radiology Impressions Abdomen/Pelvis CT 03/20/22 15:23 IMPRESSION: 1. Mild right-sided hydronephrosis and perinephric edema, secondary to 3 mm proximal to mid right ureteral calculus. 2. Additional findings, as above. COMMENTS: Consistent with the [employer]'s Incidental Findings Committee white paper (J Am Ramírez Radiol 2018): Any incidental renal lesion less than 1 cm or classified as too small to characterize, or any incidental cystic renal lesion characterized as simple-appearing, is likely benign. No follow-up imaging is recommended for these lesions per consensus recommendations based on imaging criteria. Laboratory Results WBC 14.6 10^3/uL (4.0-10.0) H 03/20/22 14:35 RBC 5.43 10^6/uL (4.1-5.3) H 03/20/22 14:35 Hgb 15.4 g/dL (11.5-15.3) H 03/20/22 14:35 Hct 48.0 % (37.0-47.0) H 03/20/22 14:35 MCV 88.4 fl (81-99) 03/20/22 14:35 MCH 28.4 pg (28.0-34.0) 03/20/22 14:35 MCHC 32.1 g/dL (30.0-36.0) 03/20/22 14:35 RDW 12.6 % (12.1-15.1) 03/20/22 14:35 Plt Count 386 10^3/cmm (130-400) 03/20/22 14:35 MPV 10.5 fL (7.4-10.4) H 03/20/22 14:35 Neut % (Auto) 81.1 % 03/20/22 14:35 Lymph % (Auto) 12.6 % 03/20/22 14:35 [place] % (Auto) 3.4 % 03/20/22 14:35 Eos % (Auto) 1.9 % 03/20/22 14:35 Baso % (Auto) 0.5 % 03/20/22 14:35 Neut # (Auto) 11.80 10^3/uL (1.8-7.7) H 03/20/22 14:35 Lymph # (Auto) 1.8 10^3/uL (0.8-4.8) 03/20/22 14:35 [place] # (Auto) 0.5 10^3/uL (0.2-0.9) 03/20/22 14:35 Eos # (Auto) 0.3 10^3/uL (0.0-0.8) 03/20/22 14:35 Baso # (Auto) 0.1 10^3/uL (0.0-0.1) 03/20/22 14:35 Nucleated RBC % (auto) 0 % 03/20/22 14:35 Nucleated RBCs # 0.0 /100WBC 03/20/22 14:35 Sodium 137 mmol/L (136-145) 03/20/22 14:35 Potassium 4.3 mmol/L (3.5-5.1) 03/20/22 14:35 Chloride 103 mmol/L (98-107) 03/20/22 14:35 Carbon Dioxide 24 mmol/L (22-29) 03/20/22 14:35 Anion Gap 14.3 (5-19) 03/20/22 14:35 BUN 11 mg/dL (6-20) 03/20/22 14:35 Creatinine 0.8 mg/dL (0.5-0.9) 03/20/22 14:35 GFR Calculation 84.2 mL/min (90-130) L 03/20/22 14:35 Glucose 98 mg/dL (65-115) 03/20/22 14:35 Calculated Osmolality 283 mOsm/kg (285-295) L 03/20/22 14:35 Calcium 9.9 mg/dL (8.5-10.5) 03/20/22 14:35 Total Bilirubin 0.2 mg/dL (0.15-1.2) 03/20/22 14:35 AST 34 U/L (0-32) H 03/20/22 14:35 ALT 26 U/L (0-33) 03/20/22 14:35 Alkaline Phosphatase 124 U/L (35-105) H 03/20/22 14:35 Total Protein 8.5 g/dL (6.6-8.7) 03/20/22 14:35 Albumin 4.4 g/dL (3.5-5.2) 03/20/22 14:35 Globulin 4.1 g/dL (1.3-4.6) 03/20/22 14:35 Lipase 31 U/L (13-60) 03/20/22 14:35 Urine Color Straw (Yellow) 03/20/22 14:30 Urine Appearance Sl hazy (CLEAR) A 03/20/22 14:30 Urine pH 5 (5-7) 03/20/22 14:30 Ur Specific [place] 1.015 (1.005-1.030) 03/20/22 14:30 Urine Protein Trace (Negative) 03/20/22 14:30 Urine Glucose (UA) Norm (Normal) 03/20/22 14:30 Urine Ketones Negative (Negative) 03/20/22 14:30 Urine Blood 3+ (Negative) H 03/20/22 14:30 Urine Nitrate Negative (Negative) 03/20/22 14:30 Urine Bilirubin Neg (Negative) 03/20/22 14:30 Urine Urobilinogen Norm mg/dL (Negative) 03/20/22 14:30 Ur Leukocyte Esterase 2+ (Negative) H 03/20/22 14:30 Urine RBC 25-40 /hpf (0-2) H 03/20/22 14:30 Urine WBC 15-25 /hpf (0-5) H 03/20/22 14:30 Ur Squamous Epith Cells 0-4 /hpf (0-5) H 03/20/22 14:30 Amorphous Sediment Not Reportable 03/20/22 14:30 Urine Bacteria 2+ /hpf (NONE) H 03/20/22 14:30 Urine Mucus 1+ /hpf 03/20/22 14:30 Discharge Plan Discharge Patient Disposition: Home Clinical Impression: Kidney stone, UTI (urinary tract infection), Dehydration Condition: Stable Prescriptions: New Flomax 0.4 mg capsule 0.4 mg PO DAILY Qty: 20 0RF morphine 10 mg/5 mL solution 5 mg PO Q4H Qty: 40 0RF ondansetron HCl 4 mg tablet 4 mg PO TID PRN (Reason: nausea and vomitting) Qty: 15 0RF No Action [id number]-[id number]-FA 1 mg Tablet PO Discharge Orders: Discharge ED (Routine); Ordered 03/20/22 Ordered By: Kahlil Alonzo Referrals: Bisi Wilcox ELECTRICAL SOLDERER [Primary Care Provider] - Discharge Diet: Usual diet Discharge Activity: Increase activity as tolerated Patient Instructions: Kidney Stones (ED), Opioid Safety, Pain Management Activity Restrictions/Additional Instructions: Thank you for visiting the emergency department. You were seen and evaluated for abdominal pain. You were found to have a kidney stone which likely explains your symptoms. Additionally you are dehydrated which should improve with the IV fluids. There was evidence of urinary tract infection. You will be placed on antibiotics. You may use vula-djs-ndxtlcl medications such as acetaminophen and ibuprofen for pain however please do not exceed the daily recommended dosage as listed on the packaging and please keep in mind that many namebrand medications contain the same active ingredients. Please avoid these medications if previously instructed to do so by another physician due to other underlying medical condition. Additionally will prescribe morphine for severe pain. As discussed there is risk with these medications and breast-feeding. Opioids can be transmitted to breastmilk and because of adverse effects including serious adverse effects in a breast-feeding infant. Please discard breastmilk as discussed and watch closely for any changes in your child. I will message case management for follow-up with urology. Please return to the emergency department for fevers, uncontrolled pain, inability to tolerate oral intake, or anything else that you are concerned about and feel needs emergency department evaluation. Coding Level of Care Code ED Rewind Operator for Kendy Hollis
[2022-03-20] MEDS: morphine 4 mg/mL SDV 1 mL IVP (14:44)
[2022-03-20] MEDS: sodium chloride 0.9% 1,000 ML 999 ML IV (14:45)
[2022-03-20] MEDS: ondansetron 2 mg/ML SDV 2 mL 4 MG IVP ×2 (14:45→16:19)
[2022-03-20 14:54] LABS: Basophils # 0.1 10^3/uL (0.0-0.1); Basophils % 0.5 %; Eosinophils # 0.3 10^3/uL (0.0-0.8); Eosinophils % 1.9 %; Hemoglobin 15.4 g/dL (11.5-15.3); Lymphocytes # 1.8 10^3/uL (0.8-4.8); Lymphocytes % 12.6 %; Mean Corpuscular HGB Conc 32.1 g/dL (30.0-36.0); Mean Corpuscular Hemoglobin 28.4 pg (28.0-34.0); Mean Corpuscular Volume 88.4 fl (81-99); Mean Platelet Volume 10.5 fL (7.4-10.4); Monocytes # 0.5 10^3/uL (0.2-0.9); Monocytes % 3.4 %; Neutrophils % 81.1 %; Nucleated Red Blood Cells % 0 %; Platelet Count 386 10^3/cmm (130-400); Red Blood Count 5.43 10^6/uL (4.1-5.3); Red Cell Distribution Width 12.6 % (12.1-15.1); White Blood Count 14.6 10^3/uL (4.0-10.0)
[2022-03-20 15:18] LABS: Alanine Aminotransferase 26 U/L (0-33); Albumin Level 4.4 g/dL (3.5-5.2); Alkaline Phosphatase 124 U/L (35-105); Anion Gap 14.3 (5-19); Aspartate Amino Transferase 34 U/L (0-32); Blood Urea Nitrogen 11 mg/dL (6-20); Calcium 9.9 mg/dL (8.5-10.5); Carbon Dioxide 24 mmol/L (22-29); Chloride 103 mmol/L (98-107); Globulin 4.1 g/dL (1.3-4.6); Glomerular Filtration Rate 84.2 mL/min (90-130); Glucose 98 mg/dL (65-115); Lipase 31 U/L (13-60); Osmolality Calculated 283 mOsm/kg (285-295); Potassium 4.3 mmol/L (3.5-5.1); Sodium 137 mmol/L (136-145); Total Bilirubin 0.2 mg/dL (0.15-1.2); Total Protein 8.5 g/dL (6.6-8.7)
[2022-03-20 15:19] LABS: Add Urine Microscopic? YES; Bilirubin Urine Neg (Negative); Blood Urine 3+ (Negative); Glucose Urine UA Norm (Normal); Ketones Urine Negative (Negative); Leukocyte Esterase Urine 2+ (Negative); Nitrate Urine Negative (Negative); Protein Urine Trace (Negative); Specific Gravity, Urine 1.015 (1.005-1.030); Urine Appearance SL Hazy (CLEAR); Urine Color Straw (Yellow); Urobilinogen Urine Norm (Negative); pH Urine 5 (5-7)
[2022-03-20 15:21] LABS: Bacteria Urine 2+ /hpf; RBC Urine 25-40 /hpf (0-2); Squamous Epithelial Cell Urine 0-4 /hpf (0-5); WBC Urine 15-25 /hpf (0-5)
[2022-03-20 15:22] LABS: Add Urine Culture? Yes; Mucus Urine 1+ /hpf
--- NOTE | 2022-03-20 15:23 | CTR_ITS ---
PROCEDURE INFORMATION: Exam: CT Abdomen And Pelvis With Contrast Exam date and time: 03/20/2022 3:41 PM Age: 31 years old Clinical indication: Abdominal pain; Localized; Right lower quadrant (rlq); Prior surgery; Surgery type: Gb; Additional info: Rlq pain, ? appy vs kidney stone TECHNIQUE: Imaging protocol: Computed tomography of the abdomen and pelvis with contrast. Axial, coronal and sagittal reformatted images were created and reviewed. Radiation optimization: All CT scans at this facility use at least one of these dose optimization techniques: automated exposure control; mA and/or kV adjustment per patient size (includes targeted exams where dose is matched to clinical indication); or iterative reconstruction. Contrast material: OMNI 350; Contrast volume: 100 ml; Contrast route: INTRAVENOUS (IV); COMPARISON: CT abdomen pelvis w con* [id number] 01/11/2018 12:13 PM RADIATION DOSE METRICS: Total DLP (mGy-cm): 1038.72 FINDINGS: Liver: Unremarkable. Gallbladder and bile ducts: Status post cholecystectomy. No biliary ductal dilatation. Pancreas: Unremarkable. Spleen: Unremarkable. Adrenal glands: Normal. No mass. Kidneys and ureters: 6 mm low-density right renal lesion, too small to characterize. Mild right-sided hydronephrosis and perinephric edema, secondary to 3 mm proximal to mid right ureteral calculus (axial image 55 and coronal image 23). Nonobstructing left renal calculi. Stomach and bowel: No bowel wall thickening. No obstruction. No pneumatosis. Appendix: Normal. Intraperitoneal space: No free fluid. No organized fluid collection. No free air. Vasculature: Unremarkable. No aneurysm. Lymph nodes: No pathologically enlarged lymph nodes. Urinary bladder: Unremarkable as visualized. Reproductive: Unremarkable. Bones/joints: No acute osseous abnormality. Soft tissues: Tiny, fat containing umbilical hernia. CT/CT abdomen pelvis w con* [id number] IMPRESSION: 1. Mild right-sided hydronephrosis and perinephric edema, secondary to 3 mm proximal to mid right ureteral calculus. 2. Additional findings, as above. COMMENTS: Consistent with the [employer]'s Incidental Findings Committee white paper (J Am Ramírez Radiol 2018): Any incidental renal lesion less than 1 cm or classified as too small to characterize, or any incidental cystic renal lesion characterized as simple-appearing, is likely benign. No follow-up imaging is recommended for these lesions per consensus recommendations based on imaging criteria.
[2022-03-20] MEDS: iohexol 350 mg/mL 500 mL Btl (per mL) IV (15:47)
[2022-03-20] MEDS: ketorolac 30 mg/mL INJ 15 MG IVP (16:19)
[2022-03-20] MEDS: HYDROmorphone 1 mg/mL INJ 1 mL 0.5 MG IVP (16:20)
[2022-03-20] MEDS: cefTRIAXone 1,000 MG in sodium chloride 0.9% (plus) 50 ML 100 MG IV (16:28)
== END 2022-03-20 17:34 | disposition home or self-care (01) ==
PROVIDERS: Emergency Provider Emergency Medicine; PCP Nurse Practitioner Family
DX: O86.20 Urinary tract infection following delivery, unspecified (principal); N39.0 Urinary tract infection, site not specified; N20.0 Calculus of kidney; E86.0 Dehydration; Z87.442 Personal history of urinary calculi
CPT/HCPCS: 74177; 80053; 81001; 83690; 85025; 87086; 96365; 96375; 96376; 99285; J0696; J1170; J1885; J2270; J2405; J7030; Q9967

== ENCOUNTER 2022-08-17 11:18 | Day surgery (SDC) | payer BC, SELFPAY ==
[2022-08-16 09:01] VITALS: BMI 37.8
[2022-08-16 09:24] LABS: OR HCG Qualitative Urine Negative (Negative)
[2022-08-16 09:40] LABS: Basophils % 0.5 %; Eosinophils # 0.2 10^3/uL (0.0-0.8); Eosinophils % 2.6 %; Hematocrit 44.3 % (37.0-47.0); Hemoglobin 14.3 g/dL (11.5-15.3); Lymphocytes # 1.9 10^3/uL (0.8-4.8); Lymphocytes % 22.4 %; Mean Corpuscular HGB Conc 32.3 g/dL (30.0-36.0); Mean Corpuscular Hemoglobin 28.1 pg (28.0-34.0); Mean Platelet Volume 10.5 fL (7.4-10.4); Monocytes # 0.6 10^3/uL (0.2-0.9); Monocytes % 7.4 %; Neutrophils # 5.55 10^3/uL (1.8-7.7); Neutrophils % 66.7 %; Nucleated Red Blood Cells % 0 %; Platelet Count 323 10^3/cmm (130-400); Red Blood Count 5.09 10^6/uL (4.1-5.3); Red Cell Distribution Width 12.7 % (12.1-15.1); White Blood Count 8.3 10^3/uL (4.0-10.0)
[2022-08-16 09:52] LABS: Urine Appearance Clear (CLEAR); Urine Color Yellow (Yellow)
[2022-08-16 09:53] LABS: Add Urine Microscopic? YES; Bilirubin Urine Neg (Negative); Blood Urine 2+ (Negative); Glucose Urine UA Norm (Normal); Ketones Urine Negative (Negative); Leukocyte Esterase Urine Negative (Negative); Nitrate Urine Negative (Negative); Protein Urine Neg (Negative); RBC Urine 0-4 /hpf (0-2); Specific Gravity, Urine 1.015 (1.005-1.030); Squamous Epithelial Cell Urine 0-4 /hpf (0-5); Urobilinogen Urine Norm (Negative); WBC Urine 0-4 /hpf (0-5); pH Urine 7 (5-7)
[2022-08-16 09:56] LABS: Alanine Aminotransferase 42 U/L (0-33); Albumin Level 4.2 g/dL (3.5-5.2); Alkaline Phosphatase 89 U/L (35-105); Anion Gap 15.1 (5-19); Aspartate Amino Transferase 36 U/L (0-32); Blood Urea Nitrogen 8 mg/dL (6-20); Calcium 8.8 mg/dL (8.5-10.5); Carbon Dioxide 25 mmol/L (22-29); Chloride 105 mmol/L (98-107); Glomerular Filtration Rate 144.9 mL/min (90-130); Glucose 87 mg/dL (65-115); Osmolality Calculated 290 mOsm/kg (285-295); Potassium 4.1 mmol/L (3.5-5.1); Sodium 141 mmol/L (136-145); Total Bilirubin 0.3 mg/dL (0.15-1.2); Total Protein 7.2 g/dL (6.6-8.7)
--- NOTE | 2022-08-16 16:20 | ANES.PREANE2 ---
Pre-Anesthetic Assessment Height/Weight: Height 1.63 m Weight 99.79 kg Operation Date: 08/17/22 12:50 Proposed Procedures p Laparoscopic bilateral salpingectomy 75887,Z30.2(Bilateral) - Bryan Romeo MD Familial anesthetic complications: none Was Beta Sophia taken within 24 hours: N/A Was Clonidine taken within 24 hours: N/A Social No alcohol and No tobacco Exam alert, oriented x 3, clear to auscultation bilaterally and regular rate & rhythm Airway Submandibular: within normal limits Cervical ROM: within normal limits Mallampati: Class II Dentition: full Metabolic Morbid Obesity Anesthetic Plan ASA status: 2 Anesthesia: General Medications/Allergies Home Medications Medication Instructions Recorded Confirmed Last Taken Type No Known Home Medications 08/16/22 08/16/22 Unknown History Allergies Allergy/AdvReac Type Severity Reaction Status Date / Time amoxicillin Allergy UNKNOWN Verified 08/16/22 08:59 ciprofloxacin [From Cipro] Allergy RASH Verified 08/16/22 08:59 hydrocortisone Allergy DERMATITIS Verified 08/16/22 08:59 nitrofurantoin Allergy RASH Verified 08/16/22 08:59 [From Macrobid] prednisone Allergy RASH Verified 08/16/22 08:59 Sulfa (Sulfonamide Allergy RASH Verified 08/16/22 08:59 Antibiotics) [facility] Anesthesia Medical History Anxiety History of urinary urgency Kidney stone Positive GBS test Term Surgical History Hx laparoscopic cholecystectomy (05/02/18) Hx of tonsillectomy (~2000) S/P left knee arthroscopy (~2007) Family History Family/Other Colon cancer MATERNAL UNCLE--dx age 50's Father Glaucoma Grandmother Glaucoma PATERNAL Breast cancer MATERNAL-- dx age 50's Hypercholesteremia MATERNAL Denies family history of Ovarian cancer Diabetes Hypertension Uterine cancer Thyroid disease Stroke Social History Substance/Drug Use: never Data Anesthesia 08/16/22 09:15 08/16/22 09:15 Short CBC 08/16/22 Range/Units 09:15 WBC 8.3 (4.0-10.0) 10^3/uL Hgb 14.3 (11.5-15.3) g/dL Hct 44.3 (37.0-47.0) % MCV 87.0 (81-99) fl Plt Count 323 (130-400) 10^3/cmm Neut % (Auto) 66.7 % Neut # (Auto) 5.55 (1.8-7.7) 10^3/uL BMP 08/16/22 09:15 Sodium 141 Potassium 4.1 Chloride 105 Carbon Dioxide 25 BUN 8 Creatinine 0.5 Glucose 87 Calcium 8.8 Liver Function 08/16/22 Range/Units 09:15 Total Bilirubin 0.3 (0.15-1.2) mg/dL AST 36 H (0-32) U/L ALT 42 H (0-33) U/L Alkaline Phosphatase 89 (35-105) U/L Albumin 4.2 (3.5-5.2) g/dL Urine 08/16/22 Range/Units 09:20 Urine Color Yellow (Yellow) Urine Appearance Clear (CLEAR) Urine pH 7 (5-7) Ur Specific [place] 1.015 (1.005-1.030) Urine Protein Neg (Negative) Urine Glucose (UA) Norm (Normal) Urine Ketones Negative (Negative) Urine Nitrate Negative (Negative) Urine Bilirubin Neg (Negative) Ur Leukocyte Esterase Negative (Negative) Urine RBC 0-4 H (0-2) /hpf Urine WBC 0-4 H (0-5) /hpf Blood Bank 08/16/22 09:15 Blood Type O Positive Rho(D) Type Positive Antibody Screen Negative Cardiac Studies: No Data to Display
[2022-08-17] VITALS (11 sets, daily range): BP systolic 99–128; BP diastolic 45–91; PULSE 61–89; RESP 16–20; TEMP 36.2–37.2; O2SAT 96–100
[2022-08-17] MEDS: scopolamine 1.5 Patch 1 PATCH TRANSDERMA (11:58)
[2022-08-17] MEDS: sodium chloride 0.9% 500 ML IV (11:59)
[2022-08-17] MEDS: sodium chloride 0.9% 1,000 ML 30 ML IV (12:00)
[2022-08-17] MEDS: vancomycin 1,000 MG in sodium chloride 0.9% 250 ML 250 MG IV (12:26)
--- NOTE | 2022-08-17 13:22 | P.ANESUD_ITS ---
Pre-Anesthetic Update Pre-Anesthetic Assessment: Date of Surgery/Procedure: 08/17/22 Preop Gerri gnosis: Desire permanent sterilization Proposed Procedure: Operation Date: 08/17/22 12:50 Proposed Procedures p Laparoscopic bilateral salpingectomy 07456,Z30.2(Bilateral) - Bryan Romeo MD Any changes to Pre-Anesthetic Assessment?: No Last Intake: Intake Last Liquid Date 08/16/22 Last Liquid Time 23:00 Last Solid Date 08/16/22 Last Solid Time 18:00 Labs Last 48hrs: Short CBC 08/16/22 Range/Units 09:15 WBC 8.3 (4.0-10.0) 10^3/ uL Hgb 14.3 (11.5-15.3) g/dL Hct 44.3 (37.0-47.0) % MCV 87.0 (81-99) fl Plt Count 323 (130-400) 10^3/c mm Neut % (Auto) 66.7 % Neut # (Auto) 5.55 (1.8-7.7) 10^3/u L BMP 08/16/22 09:15 Sodium 141 Potassium 4.1 Chloride 105 Carbon Dioxide 25 BUN 8 Creatinine 0.5 Glucose 87 Calcium 8.8 Liver Function 08/16/22 Range/Units 09:15 Total Bilirubin 0.3 (0.15-1.2) mg/dL AST 36 H (0-32) U/L ALT 42 H (0-33) U/L Alkaline Phosphata se 89 (35-105) U/L Albumin 4.2 (3.5-5.2) g/dL Urine 08/16/22 Range/Units 09:20 Urine Color Yellow (Yellow) Urine Appearance Clear (CLEAR) Urine pH 7 (5-7) Ur Specific [place]it y 1.015 (1.005-1.030) Urine Protein Neg (Negative) Urine Glucose (UA) Norm (Normal) Urine Ketones Negative (Negative) Urine Nitrate Negative (Negative) Urine Bilirubin Neg (Negative) Ur Leukocyte Cookie ase Negative (Negative) Urine RBC 0-4 H (0-2) /hpf Urine WBC 0-4 H (0-5) /hpf Blood Bank 08/16/22 09:15 Blood Type O Positive Rho(D) Type Positive Antibody Screen Negative Vitals: Temperature 98.4 F 08/17/22 11:38 Temperature Source Temporal Artery S can 05/24/23 11:38 Pulse Rate 89 08/17/22 11:38 Respiratory Rate 18 08/17/22 11:38 Blood Pressure 115/91 08/17/22 11:58 Blood Pressure Gloria n 99 08/17/22 11:38 Pulse Oximetry 98 08/17/22 11:38 Oxygen Delivery Me thod Room Air 08/17/22 11:41 Exam: Pre-Anes Outpt Exam: alert, oriented x 3, clear to auscultation bilaterally and regular rate & rhythm Cardiac Studies: No Data to Display
--- NOTE | 2022-08-17 13:27 | W.PM.OPSUD ---
Surgery/Procedure H&P Update DATE OF PROCEDURE: August 17, 2022 DATE H&P PERFORMED: 08/16/22 H&P UPDATE INFORMATION: I have reviewed H&P completed within last 30 days, I have examined patient prior to procedure and No changes to prior documentation PREOP DIAGNOSIS: Desire permanent sterilization PLANNED PROCEDURE: Operation Date: 08/17/22 12:50 Proposed Procedures p Laparoscopic bilateral salpingectomy 85073,Z30.2(Bilateral) - Bryan Romeo MD
--- NOTE | 2022-08-17 14:45 | PM.OP ---
Operative Report Date of procedure: August 17, 2022 Pre-op diagnosis: Preop Diagnosis Desire permanent sterilization Post-op diagnosis: Same as above Procedure done: Laparoscopic bilateral salpingectomy Specimens removed/disposition: Left and right fallopian tube Surgeon: Bryan Romeo MD Estimated blood loss (mL): 5 IV fluids (mL): 800 Urine output (mL): 100 Complications: None Procedure: After informed consent, the patient was taken to the operating room where general anesthesia was administered. She was placed in the dorsal lithotomy position and prepped and draped in sterile fashion. Pre-Procedure Time-Out verifying the correct patient identity, correct procedure verified with consent, correct site and side, correct patient position, availability of correct implants and any special equipment or requirements was performed and acknowledge by the OR team. The patient was examined under anesthesia and found to have a normal uterus with normal adnexa. A weighted speculum was placed in the vagina, and the anterior lip of cervix was grasped with the single toothed tenaculum. A uterine manipulator was advanced into the endocervical canal and uterus. The tenaculum was removed after uterine manipulator was secured. The speculum was removed from the vagina. An intraumbilical incision was made with a scalpel. While tenting up on the abdomen, a Verres needle was admitted into the intra-abdominal cavity. A saline drop test was performed and noted to be within normal limits. Pneumoperitoneum was attained with 4 liters of carbon dioxide. The Verres needle was removed. A 5 mm Opitc view trocar and sleeve were admitted into the abdomen and laparoscopic confirmation of location was achieved. A second incision was made 3 cm above the symphysis pubis, and a 5 mm trocar sleeves were admitted into the abdomen under direct laparoscopic visualization without complication. A survey revealed normal abdominal anatomy . A 5 mm blunt probe was advanced through the second trocar sleeve, and light manipulation of ovaries and uterus to assess the posterior aspects was performed. The pelvic survey shows normal uterus, left and right adnexa. The patient was placed into Trendelenburg position. The fallopian tubes were inspected bilaterally and the fimbriated ends of the fallopian tubes were visualized bilaterally. Attention was then directed to the right side. The fallopian tube and mesosalpinx were grasped and the underlying mesosalpinx was cauterized and cut using the Ligasure device. Serial cauterization and cutting was used to separate the fallopian tube from the underlying mesosalpinx until it could be amputated cutting it approximated 2 cm from the cornua. Attention was then turned to the contralateral fallopian tube, which was removed in similar fashion. Both specimens were removed through the trocar and sent to pathology. The instruments were removed. The suprapubic trocar port was removed under direct visualization insuring good hemostasis. The carbon dioxide was allowed to escape from the abdomen. The intraumbilical trocar sleeve was withdrawn under visualization with laparoscope in the sleeve to insure hemostasis. The skin incisions were closed with 3-O Monocryl subcuticular stich and Dermabond. The instruments were removed from the vagina, and excellent hemostasis was noted. The patient tolerated the procedure well, and sponge, lap and needle count were correct times two. The patient was taken to the recovery room in good condition.
--- NOTE | 2022-08-17 15:15 | ANE.PACU2 ---
Inpatient post-anesthesia follow up: Airway intact: Yes Vital signs: Temperature 98.9 F Pulse Rate 65 Respiratory Rate 18 Blood Pressure 116/58 Pulse Oximetry 100 Oxygen Delivery Me thod Simple Mask Oxygen Flow Rate 6 Fraction of Inspir ed Oxygen Hydration adequate: Yes Nausea and vomiting: No Pain level: 3 Mental status: Baseline
[2022-08-17] MEDS: HYDROcodone-acetaminophen 5-325 mg Tablet 1 TAB PO (15:37)
== END 2022-08-17 16:05 | disposition home or self-care (01) ==
PROVIDERS: PCP Nurse Practitioner; Visit Provider Obstetrics & Gynecology
PROC: (CPT 58661; principal; 2022-08-17 12:30)
DX: Z30.2 Encounter for sterilization (principal); E66.01 Morbid (severe) obesity due to excess calories; Z68.37 Body mass index [BMI] 37.0-37.9, adult
CPT/HCPCS: 58661; 36415; 36592; 80053; 81001; 84703; 85025; 86850; 86900; 88302; J1885; J2405; J2704; J2710; J3010; J3370; J3490; J7030; J7040; J7050

== ENCOUNTER → 2024-10-22 14:27 | Outpatient (BNVA) | payer BC, SELFPAY | PROVIDERS: PCP Nurse Practitioner; Visit Provider Nurse Practitioner | DX: J45.901 Unspecified asthma with (acute) exacerbation (principal) | CPT/HCPCS: 71046 ==